=== PATIENT | male | born 1965 | race African-American/Black ===

== ENCOUNTER 2019-01-17 08:17 | Emergency (ER) | payer OTHER ==
[~2019-01-17] VITALS: Ht 177.8 cm; Wt 108.9 kg
[2019-01-17] MEDS ORDERED: LISINOPRIL10 MG (08:35)
[2019-01-17] MEDS ORDERED: METFORMIN HCL500 M2 (08:35)
== END 2019-01-17 11:42 | disposition home or self-care (01) ==
LOC: ER 08:17
DX: L02.31 Cutaneous abscess of buttock (principal)

== ENCOUNTER 2019-01-27 08:06 | Emergency (ER) | payer OTHER ==
[~2019-01-27] VITALS: Ht 177.8 cm; Wt 108.9 kg
[~2019-01-27 08:06] MED LIST: LISINOPRIL10 MG; METFORMIN HCL500 M2
== END 2019-01-27 10:19 ==
LOC: ER 08:06
DX: Z48.02 Encounter for removal of sutures (principal)